=== PATIENT | male | born 1990 | race Caucasian/White ===

== ENCOUNTER 2020-08-27 11:51 | Inpatient (IN) | payer SELFPAY ==
[2020-08-27 11:55] VITALS: BP 129/81; PULSE 81; RESP 18; TEMP 36.8; O2SAT 98; BMI 22.3
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
--- NOTE | 2020-08-27 11:55 | ECG_ITS ---
[facility] Test Date: 2020-08-27 Pat Name: Napoleon Herrera Department: Room: Gender: Male Para Machine Operator: : 1990 Requested By: Bianka Poon Order Number: [id number] Moises MD: Carolyn Domingo M.D. Measurements Intervals [place] Rate: 94 P: 76 HI: 140 QRS: 71 QRSD: 90 T: 37 QT: 341 QTc: 428 Interpretive Statements SINUS RHYTHM No previous ECG available for comparison Electronically Signed On 08-27-2020 18:12:01 CDT by Carolyn Domingo M.D. [id number]
--- NOTE | 2020-08-27 12:04 | PC.NURSE ---
Security at bedside.
[2020-08-27 12:09] VITALS: O2SAT 95
[2020-08-27 12:18] LABS: Basophils % 0.4 %; Eosinophils % 0.2 %; Hematocrit 51.7 % (42.0-52.0); Hemoglobin 17.1 g/dL (11.7-16.6); Lymphocytes # 2.3 10^3/uL (0.8-4.8); Lymphocytes % 25.2 %; Mean Corpuscular HGB Conc 33.1 g/dL (30.0-36.0); Mean Corpuscular Hemoglobin 28.9 pg (28.0-34.0); Mean Corpuscular Volume 87.3 fL (80-94); Mean Platelet Volume 9.8 fL (7.4-10.4); Monocytes # 0.6 10^3/uL (0.2-0.9); Neutrophils # 6.06 10^3/uL (1.8-7.7); Neutrophils % 67.1 %; Nucleated Red Blood Cells % 0 %; Platelet Count 241 10^3/cmm (130-400); Red Blood Count 5.92 10^6/uL (4.1-5.3); Red Cell Distribution Width 12.9 % (12.1-15.1)
[2020-08-27 12:19] LABS: Glucose Point of Care 100 mg/dL (70-110)
[2020-08-27] MEDS: LORazepam 2 mg/mL INJ 1 mL IM (12:21)
[2020-08-27] MEDS: haloperidol inj 5 mg/mL INJ 1 mL IM (12:21)
[2020-08-27] MEDS: diphenhydrAMINE 50 mg/mL SDV 1mL IM (12:28)
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
[2020-08-27 12:43] LABS: Alanine Aminotransferase 17 U/L (0-41); Albumin Level 5.1 g/dL (3.5-5.2); Alkaline Phosphatase 57 IU/L (40-130); Anion Gap 16.9 (5-19); Aspartate Amino Transferase 31 U/L (0-40); Blood Urea Nitrogen 8 mg/dL (6-20); Calcium 10.3 mg/dL (8.5-10.5); Carbon Dioxide 24 mmol/L (22-29); Chloride 99 mmol/L (98-107); Glomerular Filtration Rate 80.3 mL/min (90-130); Glucose 103 mg/dL (65-115); Osmolality Calculated 281 mOsm/kg (285-295); Potassium 3.9 mmol/L (3.5-5.1); Sodium 136 mmol/L (136-145); Total Bilirubin 1.2 mg/dL (0.15-1.2); Total Protein 8.1 g/dL (6.6-8.7)
[2020-08-27 12:44] LABS: Acetaminophen < 5.0 ug/mL (10-30); Alcohol Level < 10 mg/dL (0-10); Salicylate < 0.3 mg/dL (3-10)
[2020-08-27 13:52] LABS: Amphetamines Screen Urine Negative (Negative); Barbiturates Screen Urine Negative (Negative); Benzodiazepines Screen Urine Negative (Negative); Cocaine Screen Urine Negative (Negative); Opiate Screen Urine Negative (Negative); PCP Screen Urine Negative (Negative); THC Screen Urine Positive (Negative)
[2020-08-27 17:46] VITALS: BP 108/70; PULSE 100; RESP 17; O2SAT 99
--- NOTE | 2020-08-27 19:23 | PC.NURSE ---
1:1 sitter at bedside.
[2020-08-27 19:46] VITALS: BP 106/60; PULSE 84; RESP 14; O2SAT 97
[2020-08-27 20:02] VITALS: BP 106/60; PULSE 70; RESP 14; O2SAT 98
[2020-08-27 21:16] VITALS: BP 112/80; PULSE 17; RESP 103; TEMP 37.1; O2SAT 99
--- NOTE | 2020-08-27 21:46 | PC.NURSE ---
Skin assessment revealed no wounds or injuries.
[2020-08-28 06:00] VITALS: BP 123/86; PULSE 123; RESP 18; TEMP 37.4; O2SAT 97
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
[2020-08-28 14:00] VITALS: BP 106/67; PULSE 94; RESP 18; TEMP 36.9; O2SAT 97
[2020-08-28] MEDS: ARIPiprazole 10 mg Tablet PO (15:50)
[2020-08-28 19:50] VITALS: BP 123/74; PULSE 84; RESP 17; TEMP 37.5; O2SAT 96
[2020-08-29 06:00] VITALS: BP 126/106; PULSE 98; RESP 17; TEMP 36.3; O2SAT 96
[2020-08-29] MEDS: ARIPiprazole 10 mg Tablet PO (07:58)
[2020-08-29 14:02] VITALS: BP 104/64; PULSE 99; RESP 18; TEMP 37; O2SAT 98
--- NOTE | 2020-08-29 15:28 | PM.NPN ---
Subjective NPU Subjective: Interval history: Napoleon presents today reporting that he is wondering about discharge. We discussed the fact that we truly wanted to see some improvement on his clear psychosis prior to discharge. He was reluctantly open to that as a plan. We discussed the risks, benefits and alternatives of likely increasing his Abilify tomorrow and he understood and agreed proceed as is documented in his note. He endorsed a desire to get back to work. He reports he is eating okay and sleeping fine. Mental Status Exam MSE Comments: This is a well-nourished well-developed white male with adequate dress, grooming but limited eye contact. No abnormal movements except for mild to moderate agitation. Semicooperative with exam in mild distress. Speech was decreased rate and volume. Mood described as okay, affect odd. Thought process disorganized. Thought content: Patient denied any suicidal or homicidal ideations, there were no delusions noted but he reported paranoia. He denied any auditory or visual hallucinations and did not appear to be attending to internal stimuli. Attention and concentration were limited and memory appeared unreliable but none were formally tested. He is alert and oriented times person and place. Insight and judgment are impaired, impulse control is impaired. Vitals/I&O/Wt Last Vital Signs Temp 98.3 F 08/29/20 20:05 Pulse 95 08/29/20 20:05 Resp 18 08/29/20 20:05 BP 124/82 08/29/20 20:05 Pulse Ox 97 08/29/20 20:05 Data NPU : 08/27/20 12:13 08/27/20 12:13 A&P Additional A&P Information (1) Acute psychosis: (2) Drug-induced psychotic disorder: (3) Cannabis abuse: This is a 29-year-old white male with no reported history of psychiatric problems nor significant addiction issues who presents positive for cannabis and extremely thought disorder/disorganized. 1. Continue current medication. We will increase Abilify to 15 mg p.o. every morning tomorrow 2. Continue every 15 minute checks for safety. 3. Encourage individual, group and milieu therapy. 4. Encourage sober living treatment at the highest level of care to which he is willing to commit. 5. Will explore the need for additional first break laboratory studies. 6. We will reach out to family to identify whether there is any indication that this could represent a naturally occurring organic psychosis. Involuntary Hold Information 96 Hour Hold: 96 Hour Involuntary Admission: No Attestations NPU Medical Necessity Statement*: Inpatient hospitalization is medically necessary and the clinically appropriate intervention at this time. We will monitor/add medications and make changes as indicated. Likely length of stay 3-5 days. Coding Level of Care Code Acute Timber Management Assistant for Melita Mead
[2020-08-29 20:05] VITALS: BP 124/82; PULSE 95; RESP 18; TEMP 36.8; O2SAT 97
[2020-08-29] MEDS: hyDROXYzine 25 mg Capsule 50 MG PO (20:42)
[2020-08-29] MEDS: trazodone 50 mg Tablet PO (20:42)
[2020-08-30 06:00] VITALS: BP 109/70; PULSE 72; RESP 17; TEMP 36.8; O2SAT 98
[2020-08-30] MEDS: ARIPiprazole 10 mg Tablet PO (07:58)
--- NOTE | 2020-08-30 13:21 | NPU.GN ---
Tylor appeared depressed throughout the session but spoke up a couple of times unprompted. He added to the conversation but it seemed that the experiences he spoke of were still deeply imbedded in his mind.
[2020-08-30 14:00] VITALS: BP 102/63; PULSE 80; RESP 18; TEMP 36.4; O2SAT 98
[2020-08-30 16:32] LABS: Erythrocyte Sedimentation Rate 4 mm/hr (0-10)
[2020-08-30 17:03] LABS: Magnesium 2.1 mg/dL (1.7-2.3); Thyroid Stimulating Hormone 0.47 uIU/mL (0.27-4.20)
--- NOTE | 2020-08-30 17:54 | P.PN_ITS ---
Subjective NPU Subjective: Interval history: Napoleon presents today reporting that he is having some increased clarity but also continues to be quite disorganized. He seems to believe that there may have been some LSD involved with his situation. He seemed to believe that he had taken LSD in the days prior to this episode. He reports that the weed that I smoked seemed a lot more like LSD then we. He went on to suggest that LSD was something that he has had on multiple occasions. Spoke to his mother with his permission and she is really bogged down by the hospice placement of Napoleon's father, but denies family history of psychosis or any signs suggestive that this was a direction he was heading. Mental Status Exam MSE Comments: This is a well-nourished well-developed white male with adequate dress, grooming but limited eye contact. No abnormal movements except for mild psychomotor retardation. Cooperative with exam in mild distress. Speech was decreased rate and volume. Mood described as a little better, affect less odd. Thought process more organized. Thought content: Patient denied any suicidal or homicidal ideations, there were no delusions noted but he reported paranoia. He denied any auditory or visual hallucinations and did not appear to be attending to internal stimuli. Attention and concentration were improving and memory appeared more reliable but none were formally tested. He is alert and oriented times person and place. Insight and judgment are improving, impulse control is impaired, but improving. Vitals/I&O/Wt Last Vital Signs Temp 98.5 F 08/30/20 22:00 Pulse 77 08/30/20 22:00 Resp 18 08/30/20 22:00 BP 116/73 08/30/20 22:00 Pulse Ox 98 08/30/20 22:00 Data NPU : 08/27/20 12:13 08/27/20 12:13 A&P Additional A&P Information (1) Acute psychosis: (2) Drug-induced psychotic disorder: (3) Cannabis abuse: This is a 29-year-old white male with no reported history of psychiatric problems nor significant addiction issues who presents positive for cannabis and extremely thought disorder/disorganized. 1. Continue current medication. We will increase Abilify to 15 mg p.o. every morning tomorrow 2. Continue every 15 minute checks for safety. 3. Encourage individual, group and milieu therapy. 4. Encourage sober living treatment at the highest level of care to which he is willing to commit. 5. Additional laboratory findings still give no indication of an external ent ity or other medical condition to explain the psychosis. Involuntary Hold Information 96 Hour Hold: 96 Hour Involuntary Admission: No Attestations NPU Medical Necessity Statement*: Inpatient hospitalization is medically necessary and the clinically appropriate intervention at this time. We will monitor/add medications and make changes as indicated. Likely length of stay 2-4 days. Coding Level of Care Code Acute Dedicated Truck Driver for [facility]
[2020-08-30 22:00] VITALS: BP 116/73; PULSE 77; RESP 18; TEMP 36.9; O2SAT 98
--- NOTE | 2020-08-31 00:49 | NUR.SHIFT ---
Pt is cooperative with assessment. When asked why he is here, he said that he didn't know why. As we talked, pt said that he is from [place] and I said [place]. His response was how would I know it was beautiful if no one ever told me that it was.? He does not seem to be able to answer questions well. I asked him why he is here on the unit, his response was Im not sure. I dont know where I belong. He said that he thinks he is on his own path to which he may be closer to GOD and his family. He is avoidant to touch, eye contact, and in his mannerisms in which he answers questions.
[2020-08-31 06:00] VITALS: BP 105/69; PULSE 62; RESP 15; TEMP 36.4; O2SAT 98
[2020-08-31] MEDS: ARIPiprazole 30 mg Tablet 15 MG PO (08:31)
[2020-08-31 14:00] VITALS: BP 117/82; PULSE 72; RESP 18; TEMP 36.4; O2SAT 100
--- NOTE | 2020-08-31 14:56 | PM.NPN ---
Subjective NPU Subjective: Interval history: Napoleon presents today reporting that he is feeling a little better and hopeful for discharge but appears to be aware of his dysfunction and open to continuing to work with this telegraphic typewriter mechanic in the treatment team to getting him better and discharged at appropriate time. We had discussed the risk benefits and alternatives of increasing his Abilify and he understood and agreed to proceed as is documented in this note. Mental Status Exam MSE Comments: This is a well-nourished well-developed white male with adequate dress, grooming but limited eye contact. No abnormal movements except for mild psychomotor retardation. Cooperative with exam in no acute distress. Speech was decreased rate and volume. Mood described as okay, affect subdued. Thought process more organized. Thought content: Patient denied any suicidal or homicidal ideations, there were no delusions noted but he reported paranoia. He denied any auditory or visual hallucinations and did not appear to be attending to internal stimuli. Attention and concentration were improving and memory appeared more reliable but none were formally tested. He is alert and oriented times person and place. Insight and judgment are improving, impulse control is impaired, but improving. Vitals/I&O/Wt Last Vital Signs Temp 97.7 F 08/31/20 22:00 Pulse 98 08/31/20 22:00 Resp 15 08/31/20 22:00 BP 125/75 08/31/20 22:00 Pulse Ox 97 08/31/20 22:00 Data NPU : 08/27/20 12:13 08/27/20 12:13 A&P Additional A&P Information (1) Acute psychosis: (2) Drug-induced psychotic disorder: (3) Cannabis abuse: This is a 29-year-old white male with no reported history of psychiatric problems nor significant addiction issues who presents positive for cannabis and extremely thought disorder/disorganized. 2. Continue every 15 minute checks for safety. 3. Encourage individual, group and milieu therapy. 4. Encourage sober living treatment at the highest level of care to which he is willing to commit. 5. Additional laboratory findings still give no indication of an external entity or other medical condition to explain the psychosis. Involuntary Hold Information 96 Hour Hold: 96 Hour Involuntary Admission: No Attestations NPU Medical Necessity Statement*: Inpatient hospitalization is medically necessary and the clinically appropriate intervention at this time. We will monitor/add medications and make changes as indicated. Likely length of stay 2-4 days. Coding Level of Care Code Acute Communications Program Manager for [facility]ita Mead
[2020-08-31 22:00] VITALS: BP 125/75; PULSE 98; RESP 15; TEMP 36.5; O2SAT 97
[2020-09-01 06:00] VITALS: BP 125/75; PULSE 98; RESP 15; TEMP 36.5; O2SAT 97
[2020-09-01 06:19] VITALS: BP 104/69; PULSE 64; RESP 17; TEMP 36.5; O2SAT 99
[2020-09-01] MEDS: ARIPiprazole 30 mg Tablet 15 MG PO (08:33)
--- NOTE | 2020-09-01 12:07 | PM.NPN ---
Subjective NPU Subjective: Interval history: Dequan presents today continuing to struggle with his psychosis. At one level he is reporting less anxiety and seems to have more insight into some aspects but appears to becoming more delusional in other ways. For the last 24 hours or so he has been commenting on being . He asked about being discharged and I pointed out that I wanted to work on some of his symptoms still. He inquired which ones specifically and I reported this concerned about him thinking or reporting that he is , and he replied oh that. I asked what he makes of him having those thoughts being a male in response tomato(with long a sound), tomato(with short a sound) he could not really identify what that means or why he thinks he could possibly be . Mental Status Exam MSE Comments: This is a well-nourished well-developed white male with adequate dress, grooming but limited eye contact. No abnormal movements except for mild psychomotor retardation. Cooperative with exam in no acute distress. Speech was decreased rate and volume. Mood described as pretty good, affect subdued. Thought process more organized. Thought content: Patient denied any suicidal or homicidal ideations, there were no delusions noted but he reported paranoia, and now thoughts of being . He denied any auditory or visual hallucinations and did not appear to be attending to internal stimuli. Attention and concentration were improving and memory appeared more reliable but none were formally tested. He is alert and oriented x3. Insight and judgment are limited, impulse control is impaired, but improving. Vitals/I&O/Wt Last Vital Signs Temp 98.1 F 09/01/20 21:40 Pulse 77 09/01/20 21:40 Resp 15 09/01/20 21:40 BP 97/63 09/01/20 21:40 Pulse Ox 94 09/01/20 21:40 Data NPU : 08/27/20 12:13 08/27/20 12:13 A&P Additional A&P Information (1) Acute psychosis: (2) Drug-induced psychotic disorder: (3) Cannabis abuse: This is a 29-year-old white male with no reported history of psychiatric problems nor significant addiction issues who presents positive for cannabis and extremely thought disordered/disorganized. 2. Continue every 15 minute checks for safety. 3. Encourage individual, group and milieu therapy. 4. Encourage sober living treatment at the highest level of care to which he is willing to commit. 5. Additional laboratory findings still give no indication of an external entity or other medical condition to explain the psychosis. Involuntary Hold Information 96 Hour Hold: 96 Hour Involuntary Admission: No Attestations NPU Medical Necessity Statement*: Inpatient hospitalization is medically necessary and the clinically appropriate intervention at this time. We will monitor/add medications and make changes as indicated. Likely length of stay 2-4 days. Coding Level of Care Code Acute Senior Sales Associate for Melita Mead
[2020-09-01 14:00] VITALS: BP 101/62; PULSE 72; RESP 18; TEMP 36; O2SAT 98
[2020-09-01 21:40] VITALS: BP 97/63; PULSE 77; RESP 15; TEMP 36.7; O2SAT 94
[2020-09-02 06:00] VITALS: BP 138/91; PULSE 71; RESP 15; TEMP 36.7; O2SAT 96
[2020-09-02] MEDS: ARIPiprazole 30 mg Tablet 15 MG PO (09:23)
--- NOTE | 2020-09-02 12:01 | PM.NPN ---
Subjective NPU Subjective: Interval history: Napoleon presents today continuing to struggle with psychosis. He reports being tired but starting to sleep a little better. He is unable to make sense of why this idea of being does not challenge him more. Then he began to talk about being in a nonphysical way and went off on a tangent that was fairly disorganized and confusing. We discussed the risks, benefits and alternatives of increasing his Abilify in the morning and he understood and agreed to proceed as is documented in his note. We had a discussion about considering some augmentation strategies. Mental Status Exam MSE Comments: This is a well-nourished well-developed white male with adequate dress, grooming but limited eye contact. No abnormal movements except for mild psychomotor retardation. Cooperative with exam in no acute distress. Speech was decreased rate and volume. Mood described as okay, affect subdued. Thought process more organized. Thought content: Patient denied any suicidal or homicidal ideations, there were no delusions noted but he reported paranoia, and now thoughts of being . He denied any auditory or visual hallucinations and did not appear to be attending to internal stimuli. Attention and concentration were improving and memory appeared more reliable but none were formally tested. He is alert and oriented x3. Insight and judgment are limited, impulse control is impaired, but improving. Vitals/I&O/Wt Last Vital Signs Temp 98.4 F 09/02/20 21:45 Pulse 75 09/02/20 21:45 Resp 17 09/02/20 21:45 BP 120/67 09/02/20 21:45 Pulse Ox 99 09/02/20 21:45 Data NPU : 08/27/20 12:13 08/27/20 12:13 A&P Additional A&P Information (1) Acute psychosis: (2) Drug-induced psychotic disorder: (3) Cannabis abuse: This is a 29-year-old white male with no reported history of psychiatric problems nor significant addiction issues who presents positive for cannabis and extremely thought disordered/disorganized. 1. Continue current medication. Except: Increase Abilify to 20 mg p.o. every morning tomorrow. 2. Continue every 15 minute checks for safety. 3. Encourage individual, group and milieu therapy. 4. Encourage sober living treatment at the highest level of care to which he is willing to commit. 5. Additional laboratory findings still give no indication of an external entity or other medical condition to explain the psychosis. Involuntary Hold Information 96 Hour Hold: 96 Hour Involuntary Admission: No Attestations NPU Medical Necessity Statement*: Inpatient hospitalization is medically necessary and the clinically appropriate intervention at this time. We will monitor/add medications and make changes as indicated. Likely length of stay 2-4 days. Coding Level of Care Code Acute Community Representative for [facility]
[2020-09-02 14:00] VITALS: BP 120/72; PULSE 71; RESP 18; TEMP 36.7; O2SAT 99
[2020-09-02 21:45] VITALS: BP 120/67; PULSE 75; RESP 17; TEMP 36.9; O2SAT 99
[2020-09-03 06:00] VITALS: BP 128/81; PULSE 91; RESP 16; TEMP 36.2; O2SAT 98
[2020-09-03] MEDS: ARIPiprazole 10 mg Tablet 20 MG PO (09:06)
[2020-09-03 14:00] VITALS: BP 106/70; PULSE 102; RESP 20; TEMP 36.5; O2SAT 97
--- NOTE | 2020-09-03 16:33 | PM.NPN ---
Subjective NPU Subjective: Interval history: Napoleon presents today continuing to struggle with his delusional thoughts. He spent our session today trying to explain the duality of being a male and being , making multiple attempts none of which made any stretch of sense. He reports that he is sleeping okay and eating fine and denied any significant issues. He is tolerating the increase in the medication and would like to discharge but understands that he needs to be here. Mental Status Exam MSE Comments: This is a well-nourished well-developed white male with adequate dress, grooming and eye contact. No abnormal movements except for mild psychomotor retardation. Cooperative with exam in no acute distress. Speech was decreased rate and volume. Mood described as okay, affect subdued. Thought process more organized. Thought content: Patient denied any suicidal or homicidal ideations, there were no delusions noted but he reported paranoia, and now thoughts of being . He denied any auditory or visual hallucinations and did not appear to be attending to internal stimuli. Attention and concentration were improving and memory appeared more reliable but none were formally tested. He is alert and oriented x3. Insight and judgment are limited, impulse control is impaired, but improving. Vitals/I&O/Wt Last Vital Signs Temp 98.1 F 09/03/20 22:00 Pulse 94 09/03/20 22:00 Resp 17 09/03/20 22:00 BP 112/78 09/03/20 22:00 Pulse Ox 98 09/03/20 22:00 Weight last 48 hrs Weight 72.575 kg Data NPU : 08/27/20 12:13 08/27/20 12:13 A&P Additional A&P Information (1) Acute psychosis: (2) Drug-induced psychotic disorder: (3) Cannabis abuse: This is a 29-year-old white male with no reported history of psychiatric problems nor significant addiction issues who presents positive for cannabis and extremely thought disordered/disorganized. 1. Continue current medication. 2. Continue every 15 minute checks for safety. 3. Encourage individual, group and milieu therapy. 4. Encourage sober living treatment at the highest level of care to which he is willing to commit. Involuntary Hold Information 96 Hour Hold: 96 Hour Involuntary Admission: No Attestations NPU Medical Necessity Statement*: Inpatient hospitalization is medically necessary and the clinically appropriate intervention at this time. We will monitor/add medications and make changes as indicated. Likely length of stay 2-4 days. Coding Level of Care Code Acute Manufacturing Quality Technician for [facility]
[2020-09-03] MEDS: hyDROXYzine 25 mg Capsule 50 MG PO (21:06)
[2020-09-03] MEDS: trazodone 50 mg Tablet PO (21:07)
[2020-09-03 22:00] VITALS: BP 112/78; PULSE 94; RESP 17; TEMP 36.7; O2SAT 98
[2020-09-04 06:00] VITALS: BP 117/82; PULSE 94; RESP 18; TEMP 36.4; O2SAT 97
[2020-09-04] MEDS: ARIPiprazole 10 mg Tablet 20 MG PO (08:40)
[2020-09-04 14:24] VITALS: BP 112/75; PULSE 90; RESP 18; TEMP 36.3; O2SAT 99
--- NOTE | 2020-09-04 15:23 | PM.NPN ---
Subjective NPU Subjective: Interval history: Napoleon presents today seeming to have a more pleasant and less stressed vibe. He was more interactive with other patients. He continues to struggle with thinking that he is . But seems less committed to it to a certain degree. He continues to be focused on discharge however his support network is very limited and he would need to be more functionally sound to be safe for discharge and currently, although he is voluntary, he is resigned to follow medical advice. Mental Status Exam MSE Comments: This is a well-nourished well-developed white male with adequate dress, grooming and eye contact. No abnormal movements except for mild psychomotor retardation. Cooperative with exam in no acute distress. Speech was decreased rate and volume. Mood described as a little better, affect less subdued. Thought process more organized. Thought content: Patient denied any suicidal or homicidal ideations, there were no delusions noted but he reported paranoia, and now thoughts of being . He denied any auditory or visual hallucinations and did not appear to be attending to internal stimuli. Attention and concentration were improving and memory appeared more reliable but none were formally tested. He is alert and oriented x3. Insight and judgment are limited, impulse control is impaired, but improving. Vitals/I&O/Wt Last Vital Signs Temp 97.4 F L 09/04/20 14:24 Pulse 90 09/04/20 14:24 Resp 18 09/04/20 14:24 BP 112/75 09/04/20 14:24 Pulse Ox 99 09/04/20 14:24 Weight last 48 hrs Weight 72.575 kg Data NPU : 08/27/20 12:13 08/27/20 12:13 A&P Additional A&P Information (1) Acute psychosis: (2) Drug-induced psychotic disorder: (3) Cannabis abuse: This is a 29-year-old white male with no reported history of psychiatric problems nor significant addiction issues who presents positive for cannabis and extremely thought disordered/disorganized. 1. Continue current medication. 2. Continue every 15 minute checks for safety. 3. Encourage individual, group and milieu therapy. 4. Encourage sober living treatment at the highest level of care to which he is willing to commit. Involuntary Hold Information 96 Hour Hold: 96 Hour Involuntary Admission: No Attestations NPU Medical Necessity Statement*: Inpatient hospitalization is medically necessary and the clinically appropriate intervention at this time. We will monitor/add medications and make changes as indicated. Likely length of stay 2-4 days. Coding Level of Care Code Acute Professor Of Environmental Studies for [facility]
[2020-09-04] MEDS: trazodone 50 mg Tablet PO (21:48)
[2020-09-04 22:00] VITALS: BP 105/64; PULSE 82; RESP 18; TEMP 36.6; O2SAT 98
[2020-09-05 06:00] VITALS: BP 113/65; PULSE 75; RESP 18; TEMP 36.8; O2SAT 99
[2020-09-05] MEDS: ARIPiprazole 10 mg Tablet 20 MG PO (07:55)
[2020-09-05 14:00] VITALS: BP 105/61; PULSE 101; RESP 18; TEMP 36.8; O2SAT 99
--- NOTE | 2020-09-05 16:37 | PM.NPN ---
Subjective NPU Subjective: Interval history: Napoleon presents today continuing to show slight improvement in his overall demeanor. However, he is still struggling with some fairly fixed somatic delusions. 1 in particular is his belief that he is . He reportedly heard some patient on the other side yelling that she is and he was feeling that it is such an odd coincidence that they were both . When questioned about being a male and being the often goes to philosophical conversation about duality. But today when asked how a man would conclude his he insinuated some kind of switch would occur. When that conversation continued to its natural conclusion he reported he did not want to talk about it anymore. He is however pleasant in these conversations. Mental Status Exam MSE Comments: This is a well-nourished well-developed white male with adequate dress, grooming and eye contact. No abnormal movements except for mild psychomotor retardation. Cooperative with exam in no acute distress. Speech was more normal rate and volume. Mood described as not bad, affect less subdued. Thought process more organized. Thought content: Patient denied any suicidal or homicidal ideations, there were no delusions noted but he reported paranoia and somatic delusions., and continued thoughts of being . He denied any auditory or visual hallucinations and did not appear to be attending to internal stimuli. Attention and concentration were improving and memory appeared more reliable but none were formally tested. He is alert and oriented x3. Insight and judgment are limited, impulse control is impaired, but improving. Vitals/I&O/Wt Last Vital Signs Temp 98.4 F 09/05/20 20:20 Pulse 82 09/05/20 20:20 Resp 17 09/05/20 20:20 BP 107/67 09/05/20 20:20 Pulse Ox 98 09/05/20 20:20 Data NPU : 08/27/20 12:13 08/27/20 12:13 A&P Additional A&P Information (1) Acute psychosis: (2) Drug-induced psychotic disorder: (3) Cannabis abuse: This is a 29-year-old white male with no reported history of psychiatric problems nor significant addiction issues who presents positive for cannabis and extremely thought disordered/disorganized. 1. Continue current medication. Will consider Invega in the morning. 2. Continue every 15 minute checks for safety. 3. Encourage individual, group and milieu therapy. 4. Encourage sober living treatment at the highest level of care to which he is willing to commit. Involuntary Hold Information 96 Hour Hold: 96 Hour Involuntary Admission: No Attestations NPU Medical Necessity Statement*: Inpatient hospitalization is medically necessary and the clinically appropriate intervention at this time. We will monitor/add medications and make changes as indicated. Likely length of stay 2-4 days. Coding Level of Care Code Acute Transportation Superintendent for [facility]
[2020-09-05 20:20] VITALS: BP 107/67; PULSE 82; RESP 17; TEMP 36.9; O2SAT 98
--- NOTE | 2020-09-05 23:57 | NUR.SHIFT ---
Pt states that he is resting better and less anxious than when he was admitted. Originally, the patient believed that he was . However, this evening he stated that he feels like he is feeling someone else's . He said that he had morning sickness and feels a warmth in his stomach. He said it feels alive to him. He does say that he still feels .
[2020-09-06 06:00] VITALS: BP 112/76; PULSE 72; RESP 17; TEMP 36.4; O2SAT 99
[2020-09-06] MEDS: ARIPiprazole 10 mg Tablet 20 MG PO (08:02)
[2020-09-06] MEDS: paliperidone ER 6 mg Tablet PO (11:22)
[2020-09-06 13:53] VITALS: BP 123/81; PULSE 96; RESP 18; TEMP 36.8; O2SAT 100
--- NOTE | 2020-09-06 14:15 | PM.NPN ---
Subjective NPU Subjective: Interval history: Napoleon presents today continuing to show improvement in his general demeanor and potential unit. He seems much less anxious and withdrawn, and much more pleasant and interactive. He continues however to struggle with the delusion of being . He reported today that he had a desire to meet the individual on the other side of the unit who believes that she is . He continues not to be able to explain how ill he would be and be a male. He denied feeling anything that would support his state. He reports that he is sleeping a little better. He was somewhat saddened by the fact he was not going home but was able to identify the importance of him staying as we reflected upon the importance of him being well to return to work. Mental Status Exam MSE Comments: This is a well-nourished well-developed white male with adequate dress, grooming and eye contact. No abnormal movements except for mild psychomotor retardation. Cooperative with exam in no acute distress. Speech was more normal rate and volume. Mood described as pretty good, affect brighter. Thought process more organized. Thought content: Patient denied any suicidal or homicidal ideations, there were no delusions noted but he reported paranoia and somatic delusions, and continued thoughts of being . He denied any auditory or visual hallucinations and did not appear to be attending to internal stimuli. Attention and concentration were improving and memory appeared more reliable but none were formally tested. He is alert and oriented x3. Insight and judgment are limited, but improving. Impulse control is impaired, but improving. Vitals/I&O/Wt Last Vital Signs Temp 98.2 F 09/06/20 20:55 Pulse 86 09/06/20 20:55 Resp 17 09/06/20 20:55 BP 121/79 09/06/20 20:55 Pulse Ox 98 09/06/20 20:55 Data NPU : 08/27/20 12:13 08/27/20 12:13 A&P Additional A&P Information (1) Acute psychosis: (2) Drug-induced psychotic disorder: (3) Cannabis abuse: This is a 29-year-old white male with no reported history of psychiatric problems nor significant addiction issues who presents positive for cannabis and extremely thought disordered/disorganized. 1. Continue current medication. Except: Start Invega with the hopes that either 1 could ultimately be an injectable treatment for his condition. However if nothing to be a clear benefit, would next consider something like Zyprexa for improved sleep and synergistic effect. 2. Continue every 15 minute checks for safety. 3. Encourage individual, group and milieu therapy. 4. Encourage sober living treatment at the highest level of care to which he is willing to commit. Involuntary Hold Information 96 Hour Hold: 96 Hour Involuntary Admission: No Attestations NPU Medical Necessity Statement*: Inpatient hospitalization is medically necessary and the clinically appropriate intervention at this time. We will monitor/add medications and make changes as indicated. Likely length of stay 3-5 days. Coding Level of Care Code Acute Inspector Health Care Facilities for [facility]
[2020-09-06 20:55] VITALS: BP 121/79; PULSE 86; RESP 17; TEMP 36.8; O2SAT 98
--- NOTE | 2020-09-07 04:08 | PC.NURSE ---
Pt wakes early each morning about 0400. He paces the hallway but seems calm. He did not receive any medication last night and slept well other than the early waking.
[2020-09-07 06:00] VITALS: BP 104/61; PULSE 77; RESP 17; TEMP 37; O2SAT 97
[2020-09-07] MEDS: ARIPiprazole 10 mg Tablet 20 MG PO (08:14)
[2020-09-07] MEDS: paliperidone ER 6 mg Tablet PO (08:14)
--- NOTE | 2020-09-07 10:07 | P.PN_ITS ---
Subjective NPU Subjective: Interval history: Napoleon presents today reporting that things are better. He continues to struggle with what's next and how he is thinking however he does report that the thoughts are less prevalent seemed to be moving to the back of my mind. He reports he is sleeping okay and he denies any problems with the medication. Mental Status Exam MSE Comments: This is a well-nourished well-developed white male with adequate dress, grooming and eye contact. No abnormal movements except for mild psychomotor retardation. Cooperative with exam in no acute distress. Speech was more normal rate and volume. Mood described as I don't know, affect a little odd. Thought process more organized. Thought content: Patient denied any suicidal or homicidal ideations, there were no delusions noted but he reported paranoia and somatic delusions, and continued thoughts of being . He denied any auditory or visual hallucinations and did not appear to be attending to internal stimuli. Attention and concentration were improving and memory appeared more reliable but none were formally tested. He is alert and oriented x3. Insight and judgment are limited, but improving. Impulse control is impaired, but improving. Vitals/I&O/Wt Last Vital Signs Temp 98.6 F 09/07/20 06:00 Pulse 77 09/07/20 06:00 Resp 17 09/07/20 06:00 BP 104/61 09/07/20 06:00 Pulse Ox 97 09/07/20 06:00 Data NPU : 08/27/20 12:13 08/27/20 12:13 A&P Additional A&P Information (1) Acute psychosis: (2) Drug-induced psychotic disorder: (3) Cannabis abuse: This is a 29-year-old white male with no reported history of psychiatric problems nor significant addiction issues who presents positive for cannabis and extremely thought disordered/disorganized. 1. Continue current medication. 2. Continue every 15 minute checks for safety. 3. Encourage individual, group and milieu therapy. 4. Encourage sober living treatment at the highest level of care to which he is willing to commit. Involuntary Hold Information 96 Hour Hold: 96 Hour Involuntary Admission: No Attestations NPU Medical Necessity Statement*: Inpatient hospitalization is medically necessary and the clinically appropriate intervention at this time. We will monitor/add medications and make changes as indicated. Likely length of stay 2-4 days. Coding Level of Care Code Acute Ambulance Officer for [facility]
[2020-09-07 13:50] VITALS: BP 115/76; PULSE 107; RESP 18; TEMP 36.3; O2SAT 99
[2020-09-07 20:17] VITALS: BP 119/77; PULSE 105; RESP 17; TEMP 36.6; O2SAT 93
[2020-09-08 06:00] VITALS: BP 110/77; PULSE 106; RESP 17; TEMP 36.6; O2SAT 98
[2020-09-08] MEDS: paliperidone ER 6 mg Tablet PO (08:22)
[2020-09-08] MEDS: ARIPiprazole 10 mg Tablet 20 MG PO (08:22)
[2020-09-08 14:00] VITALS: BP 105/68; PULSE 84; RESP 18; TEMP 36.8; O2SAT 90
--- NOTE | 2020-09-08 16:47 | PM.NPN ---
Subjective NPU Subjective: Interval history: Napoleon presents today reporting that he feels a little lethargic with the 2 medications. We discussed the risk benefits alternatives of reducing the Abilify slightly in the morning and he understood and agreed to proceed as is documented in this note. He reports thoughts of have become more in the background and feeling more metaphysical than a reality. Mental Status Exam MSE Comments: This is a well-nourished well-developed white male with adequate dress, grooming and eye contact. No abnormal movements except for mild psychomotor retardation. Cooperative with exam in no acute distress. Speech was more normal rate and volume. Mood described as okay, affect a little odd. Thought process more organized. Thought content: Patient denied any suicidal or homicidal ideations, there were no delusions noted but he reported paranoia and somatic delusions, and continued thoughts of being , which he reports feel less pressing. He denied any auditory or visual hallucinations and did not appear to be attending to internal stimuli. Attention and concentration were improving and memory appeared more reliable but none were formally tested. He is alert and oriented x3. Insight and judgment are limited, but improving. Impulse control is impaired, but improving. Vitals/I&O/Wt Last Vital Signs Temp 98.2 F 09/08/20 14:00 Pulse 84 09/08/20 14:00 Resp 18 09/08/20 14:00 BP 105/68 09/08/20 14:00 Pulse Ox 90 09/08/20 14:00 Data NPU : 08/27/20 12:13 08/27/20 12:13 A&P Additional A&P Information (1) Acute psychosis: (2) Drug-induced psychotic disorder: (3) Cannabis abuse: This is a 29-year-old white male with no reported history of psychiatric problems nor significant addiction issues who presents positive for cannabis and extremely thought disordered/disorganized. 1. Continue current medication. 2. Continue every 15 minute checks for safety. 3. Encourage individual, group and milieu therapy. 4. Encourage sober living treatment at the highest level of care to which he is willing to commit. Involuntary Hold Information 96 Hour Hold: 96 Hour Involuntary Admission: No Attestations NPU Medical Necessity Statement*: Inpatient hospitalization is medically necessary and the clinically appropriate intervention at this time. We will monitor/add medications and make changes as indicated. Likely length of stay 2-4 days. Coding Level of Care Code Acute Rubber Press Tender for [facility]
[2020-09-08 20:56] VITALS: BP 101/83; PULSE 85; RESP 18; TEMP 36.7; O2SAT 98
--- NOTE | 2020-09-08 22:12 | PC.NURSE ---
Assessment pt is calm, cooperative with staff, in the dayroom with another patient playing a game at the table. He was interacting well with the people in the dayroom until the patient from down the glass came into the dayroom. he begain to call him a faggot, queer, bacon boy. Upsetting the other patient. He was intentionally acting like a bully. He was asked to stop and to avoid interaction with other patient and he complied.
[2020-09-09 06:00] VITALS: BP 120/88; PULSE 130; RESP 19; TEMP 36.5; O2SAT 96
[2020-09-09] MEDS: ARIPiprazole 30 mg Tablet 15 MG PO (08:36)
[2020-09-09] MEDS: paliperidone ER 6 mg Tablet PO (08:36)
--- NOTE | 2020-09-09 12:37 | P.PN_ITS ---
Subjective NPU Subjective: Interval history: Napoleon presents today reporting that he is feeling better. He endorses that the thoughts of had moved to the back of his mind. He reports the thought came into his mind because he was having some upset stomach at some point and someone jokingly talked about morning sickness and he had thoughts of being . He reports that he is not feeling that that is physically possible. He reports he is eating and sleeping okay and denied feeling lethargic like he did yesterday before the decrease in the Abilify. He also reported wanting to have his medication in the morning. Mental Status Exam MSE Comments: This is a well-nourished well-developed white male with adequate dress, grooming and eye contact. No abnormal movements except for mild psychomotor retardation. Cooperative with exam in no acute distress. Speech was more normal rate and volume. Mood described as a little better, affect less odd. Thought process more organized. Thought content: Patient denied any suicidal or homicidal ideations, there were no delusions noted but he reported paranoia and somatic delusions, but reported that thoughts of were greatly diminished. He denied any auditory or visual hallucinations and did not appear to be attending to internal stimuli. Attention and concentration were improving and memory appeared more reliable but none were formally tested. He is alert and oriented x3. Insight and judgment are limited, but improving. Impulse control is impaired, but improving. Vitals/I&O/Wt Last Vital Signs Temp 97.7 F 09/09/20 06:00 Pulse 130 H 09/09/20 06:00 Resp 19 H 09/09/20 06:00 BP 120/88 09/09/20 06:00 Pulse Ox 96 09/09/20 06:00 Data NPU : 08/27/20 12:13 08/27/20 12:13 A&P Additional A&P Information (1) Acute psychosis: (2) Drug-induced psychotic disorder: (3) Cannabis abuse: This is a 29-year-old white male with no reported history of psychiatric problems nor significant addiction issues who presents positive for cannabis and extremely thought disordered/disorganized. 1. Continue current medication. See how he is doing in the morning to determine whether we will decrease Abilify another 5 mg. 2. Continue every 15 minute checks for safety. 3. Encourage individual, group and milieu therapy. 4. Encourage sober living treatment at the highest level of care to which he is willing to commit. Involuntary Hold Information 96 Hour Hold: 96 Hour Involuntary Admission: No Attestations NPU Medical Necessity Statement*: Inpatient hospitalization is medically necessary and the clinically appropriate intervention at this time. We will monitor/add medications and make changes as indicated. Likely length of stay 2-4 days. Coding Level of Care Code Acute Managed Security Sales Consultant for Melita Mead
[2020-09-09 14:00] VITALS: BP 144/81; PULSE 106; RESP 20; TEMP 36.7; O2SAT 98
[2020-09-09 22:00] VITALS: BP 121/80; PULSE 79; RESP 18; TEMP 36.6; O2SAT 99
[2020-09-10 06:00] VITALS: BP 129/90; PULSE 113; RESP 18; TEMP 36.6; O2SAT 98
[2020-09-10] MEDS: paliperidone ER 6 mg Tablet PO (08:51)
[2020-09-10] MEDS: ARIPiprazole 30 mg Tablet 15 MG PO (08:51)
--- NOTE | 2020-09-10 10:12 | P.PN_ITS ---
Subjective NPU Subjective: Interval history: Napoleon presents today continuing to improve and show reduction in his psychotic thinking. He still identifies with the delusion but is continuing to be less attached to it and clearly having a greater sense of the and impossibility of that thought. We discussed the reduction in the Abilify which he reports he feels less lethargic in sign ificant way. We discussed some concerns about whether the coexistence of the Abilify and Invega are what have pushed the improvement or not. Mental Status Exam MSE Comments: This is a well-nourished well-developed white male with adequate dress, grooming and eye contact. No abnormal movements except for mild psychomotor retardation. Cooperative with exam in no acute distress. Speech was more normal rate and volume. Mood described as better, affect more normal. Thought process more organized. Thought content: Patient denied any suicidal or homicidal ideations, there were no delusions reported or noted, but reported that thoughts of were greatly diminished. He denied any auditory or visual hallucinations and did not appear to be attending to internal stimuli. Attention and concentration were improving and memory appeared more reliable but none were formally tested. He is alert and oriented x3. Insight and judgment are limited, but improving. Impulse control is impaired, but improving. Vitals/I&O/Wt Last Vital Signs Temp 98.2 F 09/10/20 21:38 Pulse 95 09/10/20 21:38 Resp 18 09/10/20 21:38 BP 120/77 09/10/20 21:38 Pulse Ox 96 09/10/20 21:38 Weight last 48 hrs Weight 71.724 kg Data NPU : 08/27/20 12:13 08/27/20 12:13 A&P Additional A&P Information (1) Acute psychosis: (2) Drug-induced psychotic disorder: (3) Cannabis abuse: This is a 29-year-old white male with no reported history of psychiatric problems nor significant addiction issues who presents positive for cannabis and extremely thought disordered/disorganized. 1. Continue current medication. See how he is doing in the morning to determine whether we will decrease Abilify another 5 mg. 2. Continue every 15 minute checks for safety. 3. Encourage individual, group and milieu therapy. 4. Encourage sober living treatment at the highest level of care to which he is willing to commit. Involuntary Hold Information 96 Hour Hold: 96 Hour Involuntary Admission: No Attestations NPU Medical Necessity Statement*: Inpatient hospitalization is medically necessary and the clinically appropriate intervention at this time. We will monitor/add medications and make changes as indicated. Likely length of stay 2-4 days. Coding Level of Care Code Acute Bottle House Quality Control Technician for Melita Mead
[2020-09-10 13:49] VITALS: BP 132/82; PULSE 98; RESP 18; TEMP 36.4; O2SAT 99
[2020-09-10 21:38] VITALS: BP 120/77; PULSE 95; RESP 18; TEMP 36.8; O2SAT 96
[2020-09-11 06:00] VITALS: BP 129/85; PULSE 86; RESP 17; TEMP 36.6; O2SAT 98
[2020-09-11] MEDS: ARIPiprazole 30 mg Tablet 15 MG PO (07:54)
[2020-09-11] MEDS: paliperidone ER 6 mg Tablet PO (07:54)
[2020-09-11 13:34] VITALS: BP 122/85; PULSE 112; RESP 18; TEMP 36.9; O2SAT 98
--- NOTE | 2020-09-11 14:05 | P.PN_ITS ---
Subjective NPU Subjective: Interval history: Patient presents that it is his expectation that the Abilify was going to be decreased and then he was going to be discharged home. 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 We discussed the fact that he lives alone and expressed some concern that mental health issues come up especially in the winter. However he feels that he will be safe and be able to keep busy and exercise good mental health. Mental Status Exam MSE Comments: This is a well-nourished well-developed white male with adequate dress, grooming and eye contact. No abnormal movements except for mild psychomotor retardation. Cooperative with exam in no acute distress. Speech was more normal rate and volume. Mood described as better, affect more normal. Thought process more organized. Thought content: Patient denied any suicidal or homicidal ideations, there were no delusions reported or noted. He denied any auditory or visual hallucinations and did not appear to be attending to internal stimuli. Attention and concentration were improving and memory appeared more reliable but none were formally tested. He is alert and oriented x3. Insight and judgment are limited, but improving. Impulse control is improving. Cognition: Patient Appearance: Appropriate Level of Consciousness: Awake Patient Cognition Impaired: Yes (either AMS or resistant to care.) Ability to Follow Directions: Fair Patient Orientation (long list): Person and Name Comprehension Ability: No Impairment Hallucination Type: None Delusion Description: Not Present Thought Process: Appropriate Affect: Affect Description: Flat Behavior: Patient Behavior: Appropriate and Cooperative Speech Pattern: Appropriate and Clear Vitals/I&O/Wt Last Vital Signs Temp 98.4 F 09/11/20 13:34 Pulse 112 H 09/11/20 13:34 Resp 18 09/11/20 13:34 BP 122/85 09/11/20 13:34 Pulse Ox 98 09/11/20 13:34 Weight last 48 hrs Weight 71.724 kg Data NPU : 08/27/20 12:13 08/27/20 12:13 A&P Assessment and plan (1) Acute psychosis: Status: Acute (2) Drug-induced psychotic disorder: Status: Acute Qualifiers: Complication of substance-induced condition: with unspecified complication Qualified Code(s): F19.959 - Other psychoactive substance use, unspecified with psychoactive substance-induced psychotic disorder, unspecified (3) Cannabis abuse: Status: Acute Additional A&P Information (1) Acute psychosis: (2) Drug-induced psychotic disorder: (3) Cannabis abuse: This is a 29-year-old white male with no reported history of psychiatric problems nor significant addiction issues who presents positive for cannabis and extremely thought disordered/disorganized. Hospital day #16: Abilify decreased from 15 mg to 5 mg daily with the expectation that it will increase efficacy of Invega by reducing Abilify's an tagonist effect of the dopamine receptor sites. 2. Continue every 15 minute checks for safety. 3. Encourage individual, group and milieu therapy. 4. Encourage sober living treatment at the highest level of care to which he is willing to commit. Involuntary Hold Information 96 Hour Hold: 96 Hour Involuntary Admission: No Attestations NPU Medical Necessity Statement*: Patient will remain in the hospital another 2-4 nights for assessment of medication efficacy and tolerability. Coding Level of Care Code Acute Credit And Collections Representative for Melita Mead Diagnoses Acute psychosis F23 Drug-induced psychotic disorder F19.959 Complication of substance-induced condition: with unspecified complication Cannabis abuse F12.10
[2020-09-11 21:40] VITALS: BP 126/83; PULSE 93; RESP 18; TEMP 36.5; O2SAT 99
[2020-09-12 06:00] VITALS: BP 105/70; PULSE 75; RESP 18; TEMP 36.4; O2SAT 98
[2020-09-12] MEDS: ARIPiprazole 10 mg Tablet 5 MG PO (07:47)
[2020-09-12] MEDS: paliperidone ER 6 mg Tablet PO (07:47)
[2020-09-12 14:00] VITALS: BP 126/77; PULSE 99; RESP 18; TEMP 36.4; O2SAT 98
--- NOTE | 2020-09-12 16:13 | P.PN_ITS ---
Subjective NPU Subjective: Interval history: The patient is quite sarah and that he continues to question the reality of his own thinking. He also questions some of his spiritual beliefs as well. We discussed at length the need to continue to have effective reality testing and the utilization of a counselor for his mental health self-monitoring. We also discussed the need to engage in some form of spiritual activity where he has a mentor or someone who can help him discuss and explore his rastafari beliefs. I do not know where I stop and where God starts. Mental Status Exam MSE Comments: Mental Status Exam: Patient is alert interpersonally engaged male appearing approximately his stated age. Eye contact is good. There is no attention to internal stimuli. He is believed to be a reliable informant to the best of his ability except where it involves reality testing. He expresses that he has questions about his own thinking but seems reluctant to discuss those.. He freely discusses issues which are pertinent to his improved mental health following discharge. However he seems quite perplexed at times. Appearance: hygiene is good; no gross neurological deficits., gait is unrema rkable; AIMS=0 Speech: Speech is of normal rate and rhythm and easily understood. He provides answers in full sentences. Thought processes: Thought processes are abstract. Judgment is adequate for s afety. Associations: intact Psychotic processes: There is no indication of guarding or paranoia. There is no attention to the internal stimuli. Auditory and visual hallucinations are denied. Judgment: Insight is fair. Problem solving skills are adequate for safety. Orientation: The patient is oriented to person, place time and situation. Memory: no deficits noted in immediate, intermediate, or remote spheres. Attention: The patient is alert and interpersonally engaged. Language: Verbalizations are coherent. Fund of knowledge: Fund of knowledge is adequate. Affect/Mood: Affect is consistent with a mildly depressed mood. denied suicidal ideation Affective range is constricted Psychosis: perception unimpaired except through cognitive distortion; reality testing intact. Cognition: Patient Appearance: Appropriate Level of Consciousness: Awake Patient Cognition Impaired: Yes (either AMS or resistant to care.) Ability to Follow Directions: Fair Patient Orientation (long list): Person and Name Comprehension Ability: No Impairment Hallucination Type: None Delusion Description: Not Present Thought Process: Appropriate Affect: Affect Description: Appropriate Behavior: Patient Behavior: Cooperative Speech Pattern: Clear Vitals/I&O/Wt Last Vital Signs Temp 97.6 F 09/12/20 14:00 Pulse 99 09/12/20 14:00 Resp 18 09/12/20 14:00 BP 126/77 09/12/20 14:00 Pulse Ox 98 09/12/20 14:00 Data NPU : 08/27/20 12:13 08/27/20 12:13 A&P Assessment and plan (1) Acute psychosis: Status: Acute (2) Drug-induced psychotic disorder: Status: Chronic Qualifiers: Complication of substance-induced condition: with unspecified complication Qualified Code(s): F19.959 - Other psychoactive substance use, unspecified with psychoactive substance-induced psychotic disorder, unspecified (3) Cannabis abuse: Status: Chronic Additional A&P Information (1) Acute psychosis: (2) Drug-induced psychotic disorder: (3) Cannabis abuse: This is a 29-year-old white male with no reported history of psychiatric problems nor significant addiction issues who presents positive for cannabis and extremely thought disordered/disorganized. Hospital day #16: Abilify decreased from 15 mg to 5 mg daily with the expectation that it will increase efficacy of Invega by reducing Abilify's antagonist effect of the dopamine receptor sites. Hospital day #17: Abilify will be discontinued as the intended use remains somewhat unclear. The patient was given a very directive instructions on participating in individual counseling to assist with reality testing and acquisition of some form of spiritual mentorship to assist with his spiritual exploration. 2. Continue every 15 minute checks for safety. 3. Encourage individual, group and milieu therapy. 4. Encourage sober living treatment at the highest level of care to which he is willing to commit. Involuntary Hold Information 96 Hour Hold: 96 Hour Involuntary Admission: No Attestations NPU Medical Necessity Statement*: Patient will remain in the hospital another 1-2 nights for establishment of medication stability and outpatient treatment planning. Coding Level of Care Code Acute Patent Searcher for Melita Mead Diagnoses Acute psychosis F23 Drug-induced psychotic disorder F19.959 Complication of substance-induced condition: with unspecified complication Cannabis abuse F12.10
[2020-09-12 22:00] VITALS: BP 126/79; PULSE 99; RESP 18; TEMP 36.6; O2SAT 99
[2020-09-13 06:00] VITALS: BP 112/71; PULSE 78; RESP 18; TEMP 36.8; O2SAT 98
[2020-09-13] MEDS: paliperidone ER 6 mg Tablet PO (08:16)
[2020-09-13 14:00] VITALS: BP 131/71; PULSE 110; RESP 20; TEMP 36.2; O2SAT 98
--- NOTE | 2020-09-13 15:07 | P.PN_ITS ---
Subjective NPU Subjective: Interval history: I'm waiting to be discharged. Mental Status Exam MSE Comments: Mental Status Exam: Patient is alert interpersonally engaged male appearing approximately his stated age. Eye contact is good. There is no attention to internal stimuli. He is believed to be a reliable informant to the best of his ability except where it involves reality testing. Appearance: hygiene is good; no gross neurological deficits., gait is unremarkable; AIMS=0 Speech: Speech is of normal rate and rhythm and easily understood. He provides answers in full sentences. Thought processes: Thought processes are abstract. Judgment is adequate for safety. Associations: intact Psychotic processes: There is no indication of guarding or paranoia. There is no attention to the internal stimuli. Auditory and visual hallucinations are denied. Judgment: Insight is fair. Problem solving skills are adequate for safety. Orientation: The patient is oriented to person, place time and situation. Memory: no deficits noted in immediate, intermediate, or remote spheres. Attention: The patient is alert and interpersonally engaged. Language: Verbalizations are coherent. Fund of knowledge: Fund of knowledge is adequate. Affect/Mood: Affect is consistent with a mildly depressed mood. denied suicidal ideation Affective range is constricted Psychosis: perception unimpaired except through cognitive distortion; reality testing intact. Cognition: Patient Appearance: Appropriate Level of Consciousness: Awake Patient Cognition Impaired: Yes (either AMS or resistant to care.) Ability to Follow Directions: Fair Patient Orientation (long list): Person and Name Comprehension Ability: No Impairment Hallucination Type: None Delusion Description: Not Present Thought Process: Appropriate Affect: Affect Description: Appropriate Behavior: Patient Behavior: Appropriate Speech Pattern: Appropriate and Clear Vitals/I&O/Wt Last Vital Signs Temp 98.2 F 09/13/20 06:00 Pulse 78 09/13/20 06:00 Resp 18 09/13/20 06:00 BP 112/71 09/13/20 06:00 Pulse Ox 98 09/13/20 06:00 Data NPU : 08/27/20 12:13 08/27/20 12:13 A&P Assessment and plan (1) Acute psychosis: Status: Acute (2) Drug-induced psychotic disorder: Status: Chronic Qualifiers: Complication of substance-induced condition: with unspecified complication Qualified Code(s): F19.959 - Other psychoactive substance use, unspecified with psychoactive substance-induced psychotic disorder, unspecified (3) Cannabis abuse: Status: Chronic Additional A&P Information (1) Acute psychosis: (2) Drug-induced psychotic disorder: (3) Cannabis abuse: This is a 29-year-old white male with no reported history of psychiatric problems nor significant addiction issues who presents positive for cannabis and extremely thought disordered/disorganized. Hospital day #16: Abilify decreased from 15 mg to 5 mg daily with the expectation that it will increase efficacy of Invega by reducing Abilify's antagonist effect of the dopamine receptor sites. Hospital day #17: Abilify will be discontinued as the intended use remains somewhat unclear. The patient was given a very directive instructions on participating in individual counseling to assist with reality testing and acquisition of some form of spiritual mentorship to assist with his spiritual exploration. HD#18 HE's waiting to be discharged. 2. Continue every 15 minute checks for safety. 3. Encourage individual, group and milieu therapy. 4. Encourage sober living treatment at the highest level of care to which he is willing to commit. Involuntary Hold Information 96 Hour Hold: 96 Hour Involuntary Admission: No Attestations NPU Medical Necessity Statement*: Patient will remain here 1 more night until transportation home can be facilitated. Coding Level of Care Code Acute Agricultural Plow Operator for Melita Mead Diagnoses Acute psychosis F23 Drug-induced psychotic disorder F19.959 Complication of substance-induced condition: with unspecified complication Cannabis abuse F12.10
[2020-09-13 19:56] VITALS: BP 116/70; PULSE 85; TEMP 36.8; O2SAT 97
[2020-09-14 05:39] VITALS: BP 120/65; PULSE 86; RESP 16; TEMP 36.5; O2SAT 97
[2020-09-14] MEDS: paliperidone ER 6 mg Tablet PO (08:06)
[2020-09-14 13:49] VITALS: BP 131/80; PULSE 105; RESP 20; TEMP 35.5; O2SAT 98
--- NOTE | 2020-09-14 15:18 | PM.NPN ---
Subjective NPU Subjective: Interval history: I'm waiting to be discharged. Mental Status Exam MSE Comments: Mental Status Exam: Patient is alert interpersonally engaged male appearing approximately his stated age. Eye contact is good. There is no attention to internal stimuli. He is believed to be a reliable informant to the best of his ability except where it involves reality testing. Appearance: hygiene is good; no gross neurological deficits., gait is unremarkable; AIMS=0 Speech: Speech is of normal rate and rhythm and easily understood. He provides answers in full sentences. Thought processes: Thought processes are abstract. Judgment is adequate for safety. Associations: intact Psychotic processes: There is no indication of guarding or paranoia. There is no attention to the internal stimuli. Auditory and visual hallucinations are denied. Judgment: Insight is fair. Problem solving skills are adequate for safety. Orientation: The patient is oriented to person, place time and situation. Memory: no deficits noted in immediate, intermediate, or remote spheres. Attention: The patient is alert and interpersonally engaged. Language: Verbalizations are coherent. Fund of knowledge: Fund of knowledge is adequate. Affect/Mood: Affect is consistent with a mildly depressed mood. denied suicidal ideation Affective range is constricted Psychosis: perception unimpaired except through cognitive distortion; reality testing intact. Cognition: Patient Appearance: Appropriate Level of Consciousness: Awake Patient Cognition Impaired: Yes (either AMS or resistant to care.) Ability to Follow Directions: Fair Patient Orientation (long list): Person and Name Comprehension Ability: No Impairment Hallucination Type: None Delusion Description: Not Present Thought Process: Appropriate Affect: Affect Description: Appropriate Behavior: Patient Behavior: Cooperative Speech Pattern: Appropriate and Clear Vitals/I&O/Wt Last Vital Signs Temp 96 F L 09/14/20 13:49 Pulse 105 H 09/14/20 13:49 Resp 20 H 09/14/20 13:49 BP 131/80 09/14/20 13:49 Pulse Ox 98 09/14/20 13:49 Data NPU : 08/27/20 12:13 08/27/20 12:13 A&P Assessment and plan (1) Acute psychosis: Status: Acute (2) Drug-induced psychotic disorder: Status: Chronic Qualifiers: Complication of substance-induced condition: with unspecified complication Qualified Code(s): F19.959 - Other psychoactive substance use, unspecified with psychoactive substance-induced psychotic disorder, unspecified (3) Cannabis abuse: Status: Chronic Additional A&P Information (1) Acute psychosis: (2) Drug-induced psychotic disorder: (3) Cannabis abuse: This is a 29-year-old white male with no reported history of psychiatric problems nor significant addiction issues who presents positive for cannabis and extremely thought disordered/disorganized. Hospital day #16: Abilify decreased from 15 mg to 5 mg daily with the expectation that it will increase efficacy of Invega by reducing Abilify's antagonist effect of the dopamine receptor sites. Hospital day #17: Abilify will be discontinued as the intended use remains somewhat unclear. The patient was given a very directive instructions on participating in individual counseling to assist with reality testing and acquisition of some form of spiritual mentorship to assist with his spiritual exploration. HD#18 HE's waiting to be discharged. Hospital day #19: While waiting for discharge to be arranged, we discussed barriers to his continued good mental health after discharge. It is noted that the family is financially strapped and he is on Invega which costs nearly 30 times as much as a similar medication, Risperdal. It was decided to change him to Risperdal 3 mg at bedtime 2. Continue every 15 minute checks for safety. 3. Encourage individual, group and milieu therapy. 4. Encourage sober living treatment at the highest level of care to which he is willing to commit. Involuntary Hold Information 96 Hour Hold: 96 Hour Involuntary Admission: No Attestations NPU Medical Necessity Statement*: Patient will remain in the hospital 1 more night until we can find placement. Coding Level of Care Code Acute Metal Control Worker for Melita Mead Diagnoses Acute psychosis F23 Drug-induced psychotic disorder F19.959 Complication of substance-induced condition: with unspecified complication Cannabis abuse F12.10
[2020-09-14 19:45] VITALS: BP 121/81; PULSE 79; RESP 16; TEMP 36.5; O2SAT 99
[2020-09-14] MEDS: risperiDONE 1 mg Tablet 3 MG PO (20:33)
--- NOTE | 2020-09-14 20:53 | NUR.SHIFT ---
Pt denies SI/HI, denies AH/VH, is calm and cooperative with staff. Pt says that he has been napping off and on all day. He also states that he is ready to go home. Tonight he showed some concern about paying for the treatment that he has received in the unit. He says that he does not have insurance or a way to pay for medication. 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 Medication nurse, Yomi, printed off medication information and it was given to the patient. His thoughts are future based, clear, and organized this evening. He says that his plan is to go to his parent home in [place], [place]. He is not sure if he still has his job. So all of the concerns of living outside the unit are beginning to become real to him at this point.
[2020-09-15 06:00] VITALS: BP 106/60; PULSE 85; RESP 18; TEMP 37; O2SAT 98
[2020-09-15 12:03] VITALS: BP 106/60; PULSE 85; RESP 18; TEMP 37; O2SAT 98
--- NOTE | 2020-09-15 12:04 | PM.NDC ---
Diagnoses at Discharge Discharge Diagnosis (1) Acute psychosis: Status: Resolved (2) Drug-induced psychotic disorder: Status: Resolved Qualifiers: Complication of substance-induced condition: with unspecified complication Qualified Code(s): F19.959 - Other psychoactive substance use, unspecified with psychoactive substance-induced psychotic disorder, unspecified (3) Cannabis abuse: Status: Chronic (4) Schizophrenia, undifferentiated, acute episode: Status: Acute Reason for Visit Reason for Visit: COMBATIVE AT SENIOR LIVING Brief History: Napoleon Herrera is a 29 year old male who presented to the ED with the following report: Chief Complaint: Psychiatric Symptoms Stated Complaint: COMBATIVE AT SENIOR LIVING Time Seen by Provider: 08/27/20 11:55 History of Present Illness: HPI Narrative: This patient is a 29-year-old male who was brought in today from prison. [facility] and got into an altercation. He was taken to prison but has no charges. They watched him overnight as he was intoxicated. This morning when they woke him up to release him he was combative and very altered. They brought him to the ER. The patient will give me any history. He acts as though he is responding to internal stimuli. He answered some of the nurses questions but not in any meaningful or sensible way. MD complaint: altered mental status Onset (ago): unknown. He was admitted to the neuropsychiatric unit for definitive treatment of those issues. Napoleon presents today endorsing no psychiatric history at all. He was a very poor historian as his words were superfluous and were stated with firm resolved but ultimately were often meaningless or left to interpretation of the spoken idioms and analogies the words of which made sense but the application was quite confusing. He endorsed smoking cigarettes every now then, reported that he drank alcohol in the past, endorse regular marijuana use, denied cocaine or opiate use but did endorse some methamphetamine in the past. He denied benzo diazepam use, ever going to rehab, or ever having a DUI. When asked why he was here he spoke about pride and hubris. He reported that he had to see and believes things with his own eyes believing each other through and through. He spoke about the beast inside and he had to let it out. And other strange commentary. He was able to share that he is having paranoia but he really cannot give any helpful background information on what he might have taken or done that might have caused the psychosis. We discussed that at his age we could not rule out this as a first break. He was open to a trial of Abilify in the interim and we agreed that we would reach out to his family to get a sense of his premorbid functioning. Hospital Course Hospital Course Assessment and plan (1) Acute psychosis: Status: Acute (2) Drug-induced psychotic disorder: Status: Acute Qualifiers: Complication of substance-induced condition: with unspecified complication Qualified Code(s): F19.959 - Other psychoactive substance use, unspecified with psychoactive substance-induced psychotic disorder, unspecified (3) Cannabis abuse: Status: Acute Additional A&P Information This is a 29-year-old white male with no reported history of psychiatric problems nor significant addiction issues who presents positive for cannabis and extremely thought disorder/disorganized. 1. Continue current medication. Except: Initiate Abilify 10 mg p.o. every morning. 2. Continue every 15 minute checks for safety. 3. Encourage individual, group and milieu therapy. 4. Encourage sober living treatment at the highest level of care to which he is willing to commit. 5. Will explore the need for additional first break laboratory studies. 6. We will reach out to family to identify whether there is any indication that this could represent a naturally occurring organic psychosis. Hospital Day #3: Interval history: Napoleon presents today reporting that he is having some increased clarity but also continues to be quite disorganized. He seems to believe that there may have been some LSD involved with his situation. He seemed to believe that he had taken LSD in the days prior to this episode. He reports that the weed that I smoked seemed a lot more like LSD then we. He went on to suggest that LSD was something that he has had on multiple occasions. Spoke to his mother with his permission and she is really bogged down by the hospice placement of Napoleon's father, but denies family history of psychosis or any signs suggestive that this was a direction he was heading. PLAN: ncrease Abilify to 15 mg p.o. every morning tomorrow HD#6: Interval history: Napoleon presents today continuing to struggle with psychosis. He reports being tired but starting to sleep a little better. He is unable to make sense of why this idea of being does not challenge him more. Then he began to talk about being in a nonphysical way and went off on a tangent that was fairly disorganized and confusing. We discussed the risks, benefits and alternatives of increasing his Abilify in the morning and he understood and agreed to proceed as is documented in his note. We had a discussion about considering some augmentation strategies. PLAN: Increase Abilify to 20 mg p.o. every morning tomorrow. HD#10: Napoleon presents today continuing to show improvement in his general demeanor and potential unit. He seems much less anxious and withdrawn, and much more pleasant and interactive. He continues however to struggle with the delusion of being . He reported today that he had a desire to meet the individual on the other side of the unit who believes that she is . He continues not to be able to explain how ill he would be and be a male. He denied feeling anything that would support his state. He reports that he is sleeping a little better. He was somewhat saddened by the fact he was not going home but was able to identify the importance of him staying as we reflected upon the importance of him being well to return to work. Except: Start Invega with the hopes that either 1 could ultimately be an injectable HD#13: Napoleon presents today reporting that he is feeling better. He endorses that the thoughts of had moved to the back of his mind. He reports the thought came into his mind because he was having some upset stomach at some point and someone jokingly talked about morning sickness and he had thoughts of being . He reports that he is not feeling that that is physically possible. He reports he is eating and sleeping okay and denied feeling lethargic like he did yesterday before the decrease in the Abilify. He also reported wanting to have his medication in the morning.treatment for his condition. However if nothing to be a clear benefit, would next consider something like Zyprexa for improved sleep and synergistic effect. PLAN: See how he is doing in the morning to determine whether we will decrease Abilify another 5 mg. Hospital day #16: Abilify decreased from 15 mg to 5 mg daily with the expectation that it will increase efficacy of Invega by reducing Abilify's antagonist effect of the dopamine receptor sites. Hospital day #17: Abilify will be discontinued as the intended use remains somewhat unclear. The patient was given a very directive instructions on participating in individual counseling to assist with reality testing and acquisition of some form of spiritual mentorship to assist with his spiritual exploration. HD#18 HE's waiting to be discharged. Hospital day #19: While waiting for discharge to be arranged, we discussed barriers to his continued good mental health after discharge. It is noted that the family is financially strapped and he is on Invega which costs nearly 30 times as much as a similar medication, Risperdal. It was decided to change him to Risperdal 3 mg at bedtime Involuntary Hold Information 96 Hour Hold: 96 Hour Involuntary Admission: No Mental Status Exam MSE Comments: Discharge Mental Status Exam: Appearance: hygiene is good; no gross neurological deficits., gait is unremarkable; AIMS=0 Speech: Speech is of normal rate and rhythm and easily understood. Thought processes: Thought processes are abstract. Judgment is adequate for safety. Associations: intact Psychotic processes: There is no indication of guarding or paranoia. There is no attention to the internal stimuli. Auditory and visual hallucinations are denied. Judgment: Insight is fair. Problem solving skills are adequate for safety. Orientation: The patient is oriented to person, place time and situation. Memory: no deficits noted in immediate, intermediate, or remote spheres. Attention: The patient is alert and interpersonally engaged. Language: Verbalizations are coherent. Fund of knowledge: Fund of knowledge is adequate. Affect/Mood: Affect is consistent with a euthymic mood. denied suicidal ideation Affective range is appropriate. Psychosis: perception unimpaired except through cognitive distortion; reality testing intact. Discharge Data Data Completed and Pending: Completed Studies During Hospitalization Category Date Time Status CT head wo con* 7 0450 Urgent Cat Scan 08/27/20 11:55 Completed Vitals: Last Vital Signs Temp 98.6 F 09/15/20 06:00 Pulse 85 09/15/20 06:00 Resp 18 09/15/20 06:00 BP 106/60 09/15/20 06:00 Pulse Ox 98 09/15/20 06:00 Discharge Plan Discharge Patient Disposition: Home Condition: Stable Prescriptions: New trazodone 50 mg Tablet 50 mg PO BEDTIME PRN (Reason: Sleep) Qty: 15 RF: 0 benztropine 1 mg Tablet 1 mg PO BID PRN (Reason: Mild Extrapyramidal symptoms) Qty: 30 RF: 1 risperidone 1 mg Tablet 3 mg PO BEDTIME Qty: 30 RF: 3 Discharge Orders: Discharge Order (Routine); Ordered 09/15/20 Ordered By: Dank Newell Referrals: Curt [facility] [Other] - 1-3 days (To follow-up for outpatient mental health services you may go as soon as possible either Tuesdays and at 8 a.m. bring id application available for [facility] program/sliding scale to help with finances. ) Ruben Mc MD [Primary Care Provider] - Discharge Attestations NPU Time Spent in Discharge Care*: greater than 30 min Coding Level of Care Code Acute Rn First Assistant for Chg Fwd Diagnoses Acute psychosis F23 Drug-induced psychotic disorder F19.959 Complication of substance-induced condition: with unspecified complication Cannabis abuse F12.10 Schizophrenia, undifferentiated, acute episode F20.3
== END 2020-09-15 14:08 | disposition home or self-care (01) | DRG 885 ==
LOC: ER 19:02 → NP 19:17
PROVIDERS: Emergency Medicine; Admitting Provider Psychiatry & Neurology Psychiatry; Family Provider Family Medicine; PCP Family Medicine; Visit Provider Psychiatry & Neurology Psychiatry
DX: F23 Brief psychotic disorder (principal); F12.159 Cannabis abuse with psychotic disorder, unspecified
CPT/HCPCS: 12345; 36415; 36416; 70450; 80053; 80306; 80307; 82962; 83735; 84443; 85025; 85651; 93005; 96372; 99284; J1200; J1630; J2060